=== PATIENT | male | born 2000 | race Hispanic/Latino ===

== ENCOUNTER 2025-09-14 15:55 | Emergency (ER) | payer OTHER, SELFPAY ==
--- NOTE | 2025-09-14 15:58 | ED.BACK ---
HPI - Back Pain/Injury General Chief Complaint: Back Pain/Injury Stated Complaint: Back Pain Time Seen by Provider: 09/14/25 15:57 Source: patient Mode of arrival: ambulatory Limitations: no limitations History of Present Illness HPI Narrative: patient is a 25-year-old male who presents with left lower back pain that radiates down his left leg. 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 Patient went to work the following Monday and Monday but then was sent home by boss on Monday. Patient has not been back to work since. Has not follow-up with workman's Comp at this time. Denies any numbness, tingling her weakness, denies any loss of bowel or bladder. Has taken ibuprofen. Reports pain 4/10 at rest and 7/10 with walking Related Data Allergies Allergy/AdvReac Type Severity Reaction Status Date / Time No Known Allergies Allergy Verified 09/14/25 17:18 Review of Systems Review of Systems: All systems reviewed & are unremarkable except as noted in HPI and below Constitutional: Constitutional: Denies body ache(s), Denies chills, Denies fatigue, Denies fever(s), Denies headache(s), Denies malaise and Denies weakness Eyes: Eyes: Denies blurry vision, Denies irritation and Denies loss of vision ENT: Denies otalgia, Denies headache(s), Denies nasal discharge, Denies sinus pain and Denies sore throat Cardiovascular: Cardiovascular: Denies chest pain, Denies irregular heart rhythm and Denies dyspnea Respiratory: Respiratory: Denies dyspnea Gastrointestinal: Gastrointestinal: Denies abdominal pain, Denies melena, Denies hematochezia, Denies diarrhea, Denies nausea and Denies vomiting Musculoskeletal: Musculoskeletal: Reports back pain, Denies myalgias and Denies arthralgias Integumentary/Breasts: Skin/Breast: Denies pruritus and Denies rash Neurologic: Denies headache(s), Denies loss of vision and Denies weakness Psychiatric: Psychiatric: Reports no additional psychiatric complaints Endocrine: Endocrine: Denies fatigue PMFSH Comments At time of signature, agree with nursing past medical, surgical, social and family history. There is no relevant family history pertinent to the presenting complaint. Exam Const: General: cooperative, healthy appearing, comfortable, no acute distress and well nourished Nutritional Appearance: well nourished Orientation/consciousness: patient oriented x3 Limitations: no limitations HENMT: Head: normal to inspection, normocephalic and atraumatic Ears: hearing grossly normal bilaterally and external ears normal Face/Nose/Sinus: Normal external nose present, normal facial exam and face symmetric Face and sinus: normal facial exam and face symmetric Mouth: Yes lip normal Eyes: General: appearance normal, both eyes and all related structures Alignment and Position: alignment normal and position normal Periorbital: periorbital findings normal Eyelids: eyelids normal Pupils: Equal, round and reactive pupils present EOM: EOMs intact bilaterally Neck: Neck: normal visual inspection, full ROM and supple Chest: Chest palpation & inspection: normal inspection of the chest Resp: Effort & Inspection: normal respiratory effort and able to speak in complete sentences Auscultation: clear to auscultation bilaterally Cardio: Rate: regular rate Rhythm: regular rhythm Heart sounds: S1 normal heart sound present and S2 normal heart sound present GI: Inspection: normal to inspection Back/Spine/Pelvis: Thoracic/Lumbar Spine: thoracic and lumbar spine normal to inspection, No pain with thoraco-lumbar ROM, paraspinal muscle tenderness on the left in the lower lumbar, No thoracic spinal tenderness and No lumbar spinal tenderness Sacroiliac joints: on the left Sacrum: tenderness Skin: General skin exam: normal color and no rashes or lesions noted Neuro: General: patient oriented x3 and moves all extremities Cranial nerves: Yes Equal, round and reactive pupils present Speech: normal speech Gait exam (Neuro): Normal gait present Extrem: General: normal to inspection, full ROM and no edema Psych: Appearance: grossly normal and well kempt Mental Status: mental status grossly normal Speech and movement: Normal speech and movement present Affect: normal affect Attitude: cooperative Thought process: Normal thought process present Course Course Emergency Course: Patient is aware of diagnosis, understands and agrees to treatment plan. Anticipatory guidance given. Patient agrees to follow-up as directed and is aware of reasons to seek care at the emergency department. Portions of this record may have been created with voice recognition software Level of Care: Express Care Visit Vital Signs Vital signs: Reviewed MDM - Back Pain/Injury MDM Narrative Medical decision making narrative: No risk factors or findings concerning for epidural abscess, diskitis, vertebral osteomyelitis, cord compression, cauda equina, vertebral fracture or bone malignancy, AAA, or pyelonephritis. Patient instructed to consider further imaging and workup through their primary care physician as an outpatient if symptoms persist. Pt well hydrated appearing, in no respiratory distress, hemodynamically stable. Recommend supportive care. The patient is stable at time of discharge the clinical impression was discussed and the patient was given the opportunity to ask questions, which were addressed as completely as possible given the information available at present. Anticipatory guidance and return to care precautions were discussed and the importance of primary care follow-up was stressed and encouraged. The patient voiced understanding of the plan, indications to return, and the need for follow-up. Exam findings show no acute concerns or changes Patient is appropriate for outpatient treatment and follow-up. Differential Diagnosis Differential diagnosis: Likely lumbar radiculopathy, sciatica and strain of lumbar region Discharge Plan Discharge Clinical Impression: Sciatica Qualifiers: Laterality: left Qualified Code(s): M54.32 - Sciatica, left side Back injury Qualifiers: Encounter type: initial encounter Qualified Code(s): S39.92XA - Unspecified injury of lower back, initial encounter Patient Disposition: Home Condition: Stable Instructions: Sciatica (ED) Additional Instructions: [place] esteroides por la ma?elvira con alimentos y relajantes musculares cada 8 horas seg?n sea necesario para los espasmos musculares. No conduzca ni tome decisiones importantes mientras est? tomando ludwin medicamento, ya que puede causar somnolencia. Consulte con pina empleador para obtener lizandro indemnizaci?n laboral. Ejercicio: Combine ejercicio aer?bico, renato caminar o nadar, con ejercicios espec?ficos para mantener los m?sculos de la espalda y el abdomen jeremías y flexibles. No se recomienda el reposo en cama. Levantar objetos pesados ??correctamente: Aseg?rese de levantar objetos pesados ??con las piernas, no con la espalda. No se agache para recoger algo. Mantenga la espalda recta y flexione las rodillas. Peso: Mantenga un peso saludable. El sobrepeso aumenta la tensi?n en la dax lumbar. Evite fumar: Tanto el humo renato la nicotina provocan un envejecimiento m?s r?pido de lo normal de la columna vertebral. Postura correcta: Lizandro buena postura es importante para evitar problemas futuros. Un terapeuta puede ense?arle a ponerse de pie, sentarse y levantar objetos de forma gann. Use calor h?medo tibio o hielo para aliviar el dolor. Consulte con pina m?dico de cabecera en 2 o 3 d?as. Esta afecci?n puede volverse cr?dennis y ser? ?l quien le ayude a controlar el dolor y le solicite pruebas adicionales. Consulte con pina m?dico de cabecera para recibir atenci?n y evaluaci?n adicionales o acuda a urgencias si presenta problemas con la funci?n vesical/intestinal, debilidad o p?rdida de sensibilidad en lizandro o ambas piernas. Patient Language: [place] Prescriptions: New prednisone 20 mg tablet 40 mg PO DAILY 5 Days Qty: 10 0RF baclofen 10 mg tablet 10 mg PO TID 5 Days Qty: 15 0RF Follow-up/Referrals: Dylan Beltre DO [Physician, Family Practice] - 3 Days Stand Alone Forms: Work/School Release IP Time of Disposition: 17:19
[2025-09-14 16:11] VITALS: BP 117/75; PULSE 76; RESP 18; TEMP 36.6; O2SAT 100
== END 2025-09-14 17:36 | disposition home or self-care (01) ==
PROVIDERS: Emergency Provider Nurse Practitioner Family
DX: M54.32 Sciatica, left side (principal); S39.92XA Unspecified injury of lower back, initial encounter; X58.XXXA Exposure to other specified factors, initial encounter; Y99.0 Civilian activity done for income or pay
CPT/HCPCS: 99203; G0463